=== PATIENT | female | born 1995 | race Caucasian/White ===

== ENCOUNTER 2019-06-22 17:06 | Emergency (ER) | payer MEDICAID, OTHER, SELFPAY ==
--- NOTE | 2019-06-22 18:25 | RAD ---
RIGHT INDEX FINGER THREE VIEWS: 06/22/19 HISTORY: Injury, right index finger pain. FINDINGS/IMPRESSION: There are mildly displaced comminuted fractures of the tuft of the distal phalanx of the right index finger. POS: TIM[facility]
== END 2019-06-22 18:43 | disposition home or self-care (01) ==
LOC: NAV ERS 17:06
DX: S62.630A Displaced fracture of distal phalanx of right index finger, initial encounter for closed fracture (principal); W20.8XXA Other cause of strike by thrown, projected or falling object, initial encounter